=== PATIENT | female | born 1970 | race Caucasian/White ===

== ENCOUNTER 2020-01-14 00:11 | Day surgery (SDC) | payer BC, SELFPAY ==
[2020-01-08 14:59] VITALS: BMI 28.4
[2020-01-14 07:07] VITALS: BP 131/74; PULSE 97; RESP 16; TEMP 36.7; O2SAT 100
[2020-01-14 07:11] LABS: Glucose Point of Care 107 (65-105)
[2020-01-14] MEDS: LACTATED RINGERS 1,000 ML 150 ML IV CONT (07:27)
--- NOTE | 2020-01-14 08:26 | WPDANESEPPF ---
Anes - Initial Pre Proc Eval Procedure: Operation Date: 01/14/20 08:30 Proposed Procedures p Screening Colonoscopy - Tal Ledezma MD Date/Time: 01/14/20 08:26 Surgeon: Tal Ledezma MD Pre Op Diagnosis: Neosplasm Screening Patient Data Age: 49 Gender: F Height: 5 ft 6 in Weight: 70.2 kg Last Vital Signs Temp 36.7 C 01/14/20 07:07 Pulse 97 01/14/20 07:07 Resp 16 01/14/20 07:07 BP 131/74 01/14/20 07:07 Pulse Ox 100 01/14/20 07:07 Allergies Allergy/AdvReac Type Severity Reaction Status Date / Time acetaminophen [From Percocet] Allergy ITCH Verified 01/14/20 07:06 oxycodone [From Percocet] Allergy ITCH Verified 01/14/20 07:06 Home Medications Medication Instructions Recorded Confirmed Type lisinopril 5 mg tablet 5 mg PO DAILY #90 tablet 09/10/19 01/14/20 Rx atorvastatin 10 mg tablet 10 mg PO DAILY 10/09/19 01/14/20 History conjugated estrogens 0.625 mg 0.625 mg PO WEEKLY 10/09/19 01/14/20 History tablet vitamin B complex 1 tablet PO DAILY 10/09/19 01/14/20 History metformin 500 mg tablet,extended 1,000 mg PO BID #360 tablet 12/19/19 01/14/20 Rx release 24hr ikzqaoeksqnb-mux-mnom-FA-vit K 1 tablet PO DAILY 01/08/20 01/14/20 History [Adults Multivitamin] empagliflozin 10 mg-linagliptin 5 1 tablet PO DAILY #90 tablet 01/13/20 01/14/20 Rx mg tablet Laboratory Tests 01/14/20 07:09 POC Capillary Glucose 107 mg/dl mg/dl (65-105) Patient hx anesthesia problems: none Family hx anesthesia problems: none PMFSH Surgical History Surgical History (Updated 10/08/19 @ 09:36 by Grace Melgar CMA) H/O: hysterectomy (~2009) Family History Family History Mother Diabetes mellitus Other Family history of type 2 diabetes mellitus Social History Social History Smoking status: Never smoker Alcohol intake: current Anes - Eval Final PreProcedure Day of Procedure 01/14/20 08:26 Patient weight: normal Heart: regular rate and rhythm Lungs: clear to auscultation Airway: Mallampati scale class II Neurological: alert and oriented Last oral intake: >/= 8 hours ASA classification: II Emergent: no Anesthetic plan: proceed Anesthesia type and monitoring: general GIVS and standard monitoring Informed Consent: The patient's anesthetic plan and its attendant risks and benefits were discussed with the patient/family/POA. Questions were solicited and answers provided to the satisfaction of the patient/family/POA.
--- NOTE | 2020-01-14 09:01 | PM.HPGS ---
History of Present Illness History of Present Illness Consent: Risks, benefits, and alternatives have been discussed and questions answered. Patient agrees to proceed with procedure. Chief complaint: Neosplasm Screening Narrative: Bindu Crump is a 49 year old female here for her first screening colonoscopy Review of Systems Constitutional: Constitutional: Denies headache(s) and Denies weakness Eyes: Eyes: Denies blurry vision ENT: Reports Normal hearing present, Denies headache(s) and Denies neck pain Cardiovascular: Cardiovascular: Denies chest pain and Denies dyspnea Respiratory: Respiratory: Denies dyspnea Gastrointestinal: Gastrointestinal: Reports no additional gastrointestinal complaints Genitourinary: Genitourinary: Denies dysuria Musculoskeletal: Musculoskeletal: Denies neck pain Integumentary/Breasts: Skin/Breast: Denies dry skin Neurologic: Reports Normal hearing present, Denies headache(s) and Denies weakness Psychiatric: Psychiatric: Denies anxiety Endocrine: Endocrine: Denies change in body appearance Hematologic/Lymphatic: Hematologic/Lymphatic: Denies easy bleeding Allergic/Immunologic: Allergic/Immunologic: Denies urticaria PMFSH Surgical History Surgical History (Updated 10/08/19 @ 09:36 by Grace Melgar [employer]ARDING [employer] OPERATOR) H/O: hysterectomy (~2009) Family History Family History Mother Diabetes mellitus Other Family history of type 2 diabetes mellitus Social History Social History Smoking status: Never smoker Alcohol intake: current Meds Home Medications and Allergies Home Medications Medication Instructions Recorded Confirmed Type lisinopril 5 mg tablet 5 mg PO DAILY #90 tablet 09/10/19 01/14/20 Rx atorvastatin 10 mg tablet 10 mg PO DAILY 10/09/19 01/14/20 History conjugated estrogens 0.625 mg 0.625 mg PO WEEKLY 10/09/19 01/14/20 History tablet vitamin B complex 1 tablet PO DAILY 10/09/19 01/14/20 History metformin 500 mg tablet,extended 1,000 mg PO BID #360 tablet 12/19/19 01/14/20 Rx release 24hr eqofrstszpbr-sgg-wyfp-FA-vit K 1 tablet PO DAILY 01/08/20 01/14/20 History [Adults Multivitamin] empagliflozin 10 mg-linagliptin 5 1 tablet PO DAILY #90 tablet 01/13/20 01/14/20 Rx mg tablet Allergies Allergy/AdvReac Type Severity Reaction Status Date / Time acetaminophen [From Percocet] Allergy ITCH Verified 01/14/20 07:06 oxycodone [From Percocet] Allergy ITCH Verified 01/14/20 07:06 Vital Signs Vital Signs - 24 hr 01/14/20 07:07 Temperature 98.0 F Pulse Rate 97 Respiratory Rate 16 Blood Pressure 131/74 Pulse Oximetry 100 Exam Const: General: comfortable and no acute distress HENMT: General nose exam: Normal nares present Eyes: General: appearance normal, both eyes and all related structures Neck: Neck: no JVD Resp: Auscultation: clear to auscultation bilaterally Cardio: Rate: regular rate Rhythm: regular rhythm GI: Inspection: non-distended GI Palp: Yes Soft to palpation Skin: General skin exam: normal color Neuro: General: gait normal Speech: normal speech Extrem: General: normal to inspection Psych: Mental Status: mental status grossly normal Assessment and Plan Assessment and plan (1) Colon cancer screening: Code(s): Z12.11 - Encounter for screening for malignant neoplasm of colon Status: Acute Assessment and Plan: will proceed with colonoscopy (2) Type 2 diabetes mellitus without complications: Qualifiers: Diabetes mellitus valet parking attendant insulin use: without valet parking attendant use Qualified Code(s): E11.9 - Type 2 diabetes mellitus without complications Code(s): E11.9 - Type 2 diabetes mellitus without complications Status: Acute
[2020-01-14 09:27] VITALS: BP 103/49; PULSE 92; RESP 20; O2SAT 99
[2020-01-14 09:30] VITALS: BP 106/65; PULSE 93; RESP 16; O2SAT 98
[2020-01-14 09:40] VITALS: BP 120/73; PULSE 81; RESP 16; O2SAT 100
[2020-01-14 09:50] VITALS: BP 128/71; PULSE 75; RESP 16; O2SAT 98
== END 2020-01-14 09:55 | disposition home or self-care (01) ==
PROVIDERS: PCP Family Medicine; Visit Provider Internal Medicine Gastroenterology
PROC: 0DJD8ZZ Inspection of Lower Intestinal Tract, Via Natural or Artificial Opening Endoscopic (ICD-10-PCS; CPT 45378; principal; 2020-01-14 08:30)
DX: Z12.11 Encounter for screening for malignant neoplasm of colon (principal); K64.8 Other hemorrhoids; K64.4 Residual hemorrhoidal skin tags; E11.9 Type 2 diabetes mellitus without complications; Z79.84 Long term (current) use of oral hypoglycemic drugs
CPT/HCPCS: 45378; J7120

== ENCOUNTER 2020-03-12 17:11 | Emergency (ER) | payer BC, SELFPAY ==
[2020-03-12 17:51] VITALS: BP 119/73; PULSE 107; RESP 18; TEMP 36.3; O2SAT 100
--- NOTE | 2020-03-12 18:27 | ED.SKABFB ---
HPI - Skin/Abscess/Foreign Bdy General Chief complaint: Skin/Abscess/Foreign Body Stated complaint: insect bite Time Seen by Provider: 03/12/20 18:27 Source: patient Mode of arrival: ambulatory Limitations: no limitations History of Present Illness HPI narrative: Bindu Crump is a 49 yo female with a PMH of diabetes, who used a heating pad to knee for pain - on Monday had red amber that has evolved to blister with painful redness around it Related Data Home Medications Medication Instructions Recorded Confirmed conjugated estrogens 0.625 mg 0.625 mg PO WEEKLY 10/09/19 03/12/20 tablet vitamin B complex 1 tablet PO DAILY 10/09/19 03/12/20 ydzlqkvmutrw-win-tgpf-FA-vit K 1 tablet PO DAILY 01/08/20 03/12/20 [Adults Multivitamin] Allergies Allergy/AdvReac Type Severity Reaction Status Date / Time acetaminophen [From Percocet] Allergy ITCH Verified 03/12/20 17:45 oxycodone [From Percocet] Allergy ITCH Verified 03/12/20 17:45 Review of Systems Review of Systems: Narrative: CONSTITUTIONAL: Denies fever, chills, sweats. EYES: Denies visual changes, redness, discharge. ENT: Denies rhinorrhea, congestion, sore throat, otalgia. CARDIOVASCULAR: Denies chest pain, palpitations, edema. RESPIRATORY: Denies dyspnea, wheezing, cough GASTROINTESTINAL: Denies abdominal pain, nausea, vomiting, diarrhea. GENITOURINARY: Denies dysuria, hematuria, abnormal discharge SKIN: Denies rash or itching. NEUROLOGIC: Denies numbness, or focal weakness. PSYCHIATRIC: Denies anxiety or depression. Blisterand swelling of medial side of left knee with pain PMFSH Past Medical History Medical History Colon cancer screening Surgical History Surgical History H/O: hysterectomy (~2009) S/P colonoscopy 5.5.20 Family History Family History Mother Diabetes mellitus Other Family history of type 2 diabetes mellitus Social History Social History Smoking status: Never smoker Alcohol intake: current Comments At time of signature, I agree with nursing past medical, surgical, social and family history. There is no relevant family history pertinent to the presenting complaint. Exam Narrative: Exam Narrative: GENERAL: This is a well-nourished, well-developed patient, in mild distress. HEAD: normocephalic, atraumatic. EYES: . Sclera clear/white. Vision is grossly intact. EARS: External ears normal, auditory canals clear and without drainage, TMs normal without perforation. Hearing grossly intact. NOSE: External nose normal without nasal discharge, nares without redness, no rhinorrhea. THROAT: Mucous membranes moist, posterior pharynx NECK: Neck supple, non-tender CARDIOVASCULAR: Regular rate and rhythm without murmurs, gallops, or rubs. RESPIRATORY: Clear to auscultation. Breath sounds equal bilaterally. No wheezes, rales, or rhonchi. GASTROINTESTINAL: Abdomen soft, SKIN: warm, intact with no suspicious lesions or rash, good texture and turgor. NEURO: awake, alert, and oriented to person, place and time. There were no obvious focal neurologic abnormalities. Steady gait EXTREMITIES: Normal range of motion. Left medial knee has 3 x 3 area of redness and induration with blisters and center, to touch BACK: Nontender without deformity Course Course Emergency Course: Treating area of burn that now looks like evolved cellulitis with Keflex. Instructions given to patient Diabetes is controlled Follow-up with PCP Vital Signs Vital signs: Vital Signs Temperature 97.4 F L 03/12/20 17:51 Pulse Rate 107 H 03/12/20 17:51 Respiratory Rate 18 03/12/20 17:51 Blood Pressure 119/73 03/12/20 17:51 Pulse Oximetry 100 03/12/20 17:51 Temperature 97.4 F L 03/12/20 17:51 Pulse Rate 107 H 03/12/20 17:51 Respiratory
== END 2020-03-12 18:35 | disposition home or self-care (01) ==
PROVIDERS: Emergency Provider Nurse Practitioner; PCP Family Medicine
DX: L03.116 Cellulitis of left lower limb (principal); W57.XXXA Bitten or stung by nonvenomous insect and other nonvenomous arthropods, initial encounter; E11.9 Type 2 diabetes mellitus without complications; Z79.84 Long term (current) use of oral hypoglycemic drugs
CPT/HCPCS: 99213; G0463

== ENCOUNTER 2020-11-24 17:42 | Outpatient (CLI) | payer BC, SELFPAY | END 2020-11-24 17:43 | disposition home or self-care (01) | LOC: ANHCOVIDVC 17:42 | PROVIDERS: PCP Family Medicine | DX: Z23 Encounter for immunization (principal) | CPT/HCPCS: 0001A; 91300 ==

== ENCOUNTER 2020-12-15 17:45 | Outpatient (CLI) | payer BC, SELFPAY | END 2020-12-15 17:46 | disposition home or self-care (01) | LOC: ANHCOVIDVC 17:45 | PROVIDERS: PCP Family Medicine | DX: Z23 Encounter for immunization (principal) | CPT/HCPCS: 0002A; 91300 ==

== ENCOUNTER 2021-01-26 16:36 | Outpatient (CLI) | payer BC, SELFPAY ==
--- NOTE | ~2021-01-26 | MM_ITS ---
EXAMINATION: MM screening orestes BI w bonita HISTORY: Screening TECHNIQUE: Craniocaudal and mediolateral oblique 3-D tomosynthesis images were obtained and synthetic 2-D images were generated. CAD analysis was submitted and interpreted. COMPARISON: Comparison to multiple prior studies sequentially, with oldest reviewed study dated 05/2015. BREAST PARENCHYMAL COMPOSITION: The breasts are heterogeneously dense, which may obscure small masses . FINDINGS: There is no evidence of suspicious mass, calcification, or architectural distortion to sugg est malignancy in either breast. There has been no suspicious interval change. IMPRESSION: 1. No mammographic evidence of malignancy. 2. Recommend routine screening mammography in one year. BI-RADS Category 1: Negative Reviewed, dictated and finalized at location A.
== END 2021-01-26 16:37 | disposition home or self-care (01) ==
LOC: ANHIMG 16:38
PROVIDERS: PCP Family Medicine; Visit Provider Family Medicine
DX: Z12.31 Encounter for screening mammogram for malignant neoplasm of breast (principal)
CPT/HCPCS: 77063; 77067

== ENCOUNTER 2022-06-29 10:46 | Outpatient (CLI) | payer BC, SELFPAY | END 2022-06-29 10:47 | disposition home or self-care (01) | LOC: ANHGOSHLAB 10:50 | PROVIDERS: PCP Family Medicine; Visit Provider Family Medicine | DX: Z00.00 Encounter for general adult medical examination without abnormal findings (principal); E11.9 Type 2 diabetes mellitus without complications; E78.2 Mixed hyperlipidemia | CPT/HCPCS: 36415 ==

== ENCOUNTER → 2022-08-01 10:12 | Outpatient (CLI) | payer BC, SELFPAY ==
--- NOTE | ~2022-08-01 | MM_ITS ---
EXAMINATION: MM screening orestes BI w bnoita HISTORY: Screening mammogram TECHNIQUE: Craniocaudal and mediolateral oblique 3-D tomosynthesis images were obtained and synthetic 2-D images were generated. CAD analysis was submitted and interpreted. COMPARISON: 01/26/2021, 01/30/2019, 10/10/2017 bilateral screening mammogram examinations BREAST PARENCHYMAL COMPOSITION: The breasts are heterogeneously dense, which may obscure small masses . FINDINGS: There is no evidence of suspicious mass, calcification, or architectural distortion to sugg est malignancy in either breast. There has been no suspicious interval change. IMPRESSION: 1. No mammographic evidence of malignancy. 2. Recommend routine screening mammography in one year. BI-RADS Category 1: Negative Reviewed, dictated and finalized at location A. PATIONAL THERAPY ASST
== END ==
PROVIDERS: PCP Family Medicine; Visit Provider Family Medicine
DX: Z12.31 Encounter for screening mammogram for malignant neoplasm of breast (principal)
CPT/HCPCS: 77063; 77067

== ENCOUNTER 2024-09-12 10:03 | Outpatient (CLI) | payer BC, SELFPAY ==
--- NOTE | ~2024-09-12 | MM_ITS ---
EXAMINATION: MM screening orestes BI w bonita HISTORY: Screening mammogram TECHNIQUE: Craniocaudal and mediolateral oblique 3-D tomosynthesis images were obtained and synthetic 2-D images were generated. CAD analysis was submitted and interpreted. COMPARISON: 08/01/2022, 01/26/2021 BREAST PARENCHYMAL COMPOSITION:Not Dense. There are scattered areas of fibroglandular density. FINDINGS: No suspicious mass, calcification, or architectural distortion are identified in either nic ast to suggest malignancy. There has been no suspicious interval change. IMPRESSION: No mammographic evidence of malignancy. Recommend routine screening mammography in one year. BI-RADS Category 1: Negative Reviewed, dictated and finalized at location . ING ROOM MACHINE OPERATOR
== END 2024-09-12 10:04 | disposition home or self-care (01) ==
PROVIDERS: PCP Family Medicine; Visit Provider Family Medicine
DX: Z12.31 Encounter for screening mammogram for malignant neoplasm of breast (principal)
CPT/HCPCS: 77063; 77067